=== PATIENT | female | born 2000 | race Two or more races ===

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

== ENCOUNTER 2021-02-28 14:33 | Emergency (ER) | payer MEDICAID ==
[~2021-02-28] VITALS: Ht 162.6 cm; Wt 59.0 kg
[2021-02-28 14:56] VITALS: BP 113/51
[2021-02-28] MEDS ORDERED: FLUORESCEIN SODIUM 1MG/STRIP RIGHTEYE ONE (15:30)
[2021-02-28] MEDS ORDERED: TETRACAINE 0.5% OPHTH DROPS 4ML RIGHTEYE ONE (16:00)
== END 2021-02-28 17:29 | disposition home or self-care (01) ==
LOC: ER 14:33
DX: T15.91XA Foreign body on external eye, part unspecified, right eye, initial encounter (principal)
CPT/HCPCS: 99283

== ENCOUNTER 2021-03-10 01:21 | Emergency (ER) | payer MEDICAID ==
[~2021-03-10] VITALS: Ht 165.1 cm; Wt 57.0 kg
[2021-03-10] MEDS ORDERED: MORPHINE SULFATE 4 MG/ML CPJ (NOT FOR IM USE) IV STA (01:49)
[2021-03-10] MEDS ORDERED: ONDANSETRON HCL 4MG/2ML INJ IV STA (01:49)
[2021-03-10] MEDS ORDERED: SODIUM CHLORIDE 0.9% 1,000 ML IV ONE (02:00)
[2021-03-10 02:28] LABS: BASOPHILS % 0.3 % (0.0-2.0); EOSINOPHILS % 1.5 % (0.0-5.0); HEMATOCRIT. 43.5 % (36.0-48.0); HEMOGLOBIN. 14.6 g/dL (12.0-16.0); LYMPHOCYTES % 19.1 % (20.0-50.0); MEAN CORPUSCULAR HEMOGLOBIN 29.9 pg (28.0-32.0); MEAN CORPUSCULAR VOLUME 89.3 fL (81.0-99.0); MEAN PLATELET VOLUME 9.3 fl (7.4-10.4); MONOCYTES % 5.5 % (2.0-8.0); NEUTROPHILS % 73.6 % (40.0-76.0); PLATELET 264 x1000/uL (130-400); RED BLOOD CELL COUNT 4.88 mill/uL (4.2-5.4); RED CELL DISTRIBUTION WIDTH 12.9 % (11.6-14.6)
[2021-03-10 02:32] LABS: CHLORIDE 105 mEq/L (98-107)
[2021-03-10 02:36] LABS: HCG SCREEN NEGATIVE
[2021-03-10 03:47] LABS: BASOPHILS % 0.5 % (0.0-2.0); EOSINOPHILS % 0.9 % (0.0-5.0); HEMATOCRIT. 41.5 % (36.0-48.0); HEMOGLOBIN. 13.7 g/dL (12.0-16.0); LYMPHOCYTES % 16.8 % (20.0-50.0); MEAN CORPUSCULAR HEMOGLOBIN 29.8 pg (28.0-32.0); MEAN CORPUSCULAR VOLUME 90.1 fL (81.0-99.0); MEAN PLATELET VOLUME 9.2 fl (7.4-10.4); MONOCYTES % 5.3 % (2.0-8.0); NEUTROPHILS % 76.5 % (40.0-76.0); PLATELET 259 x1000/uL (130-400)
[2021-03-10] MEDS ORDERED: HYDROCODONE/ACETAMINOPHEN 5/325MG TABLET PO ONE (05:00)
[2021-03-10] MEDS ORDERED: METHOCARBAMOL 500MG TABLET PO ONE (05:00)
[2021-03-10] MEDS ORDERED: IBUP-2028 MT (05:54)
[2021-03-10] MEDS ORDERED: METH-653 MT (05:54)
[2021-03-10 06:12] VITALS: BP 118/72
[2021-03-10] MEDS ORDERED: IOHEXOL-300 100 ML BOTTLE ONE (06:41)
== END 2021-03-10 06:17 | disposition home or self-care (01) ==
LOC: ER 02:03
DX: S29.9XXA Unspecified injury of thorax, initial encounter (principal); V49.50XA Passenger injured in collision with unspecified motor vehicles in traffic accident, initial encounter; Y93.89 Activity, other specified; Y92.89 Other specified places as the place of occurrence of the external cause; Y99.8 Other external cause status
CPT/HCPCS: 36415; 70450; 71045; 71260; 72125; 73552; 73562; 74177; 80048; 81025; 84703; 85025; 86850; 86900; 86901; 93005; 96361; 96374; 96375; 99291; J2270; J2405; J7030; Q9967

== ENCOUNTER 2021-10-10 19:48 | Emergency (ER) | payer MEDICAID ==
[~2021-10-10] VITALS: Ht 167.6 cm; Wt 66.0 kg
[~2021-10-10 19:48] MED LIST: IBUP-2028 MT; METH-653 MT
[2021-10-10 19:53] VITALS: BP 119/73
[2021-10-10] MEDS ORDERED: IBUPROFEN 400MG TABLET PO ONE (20:45)
[2021-10-10] MEDS ORDERED: ACETAMINOPHEN 325MG TABLET PO ONE (20:45)
== END 2021-10-10 21:09 | disposition left against medical advice (07) ==
LOC: ER 19:48
DX: R07.89 Other chest pain (principal)
CPT/HCPCS: 93005; 99283

== ENCOUNTER 2024-09-28 15:25 | Emergency (ER) | payer MEDICAID ==
[~2024-09-28] VITALS: Ht 162.6 cm; Wt 66.0 kg
[2024-09-28 15:28] VITALS: O2SAT 98
[2024-09-28 15:40] VITALS: BP 107/56; PULSE 79; RESP 14; TEMP 36.6; O2SAT 99
[2024-09-28] MEDS ORDERED: IBUP-2029 MT (19:13)
[2024-09-28] MEDS ORDERED: TOPUD PO (19:13)
== END 2024-09-28 19:42 | disposition home or self-care (01) ==
LOC: ER 15:25
DX: M25.461 Effusion, right knee (principal); W06.XXXA Fall from bed, initial encounter; Y93.89 Activity, other specified; Y92.89 Other specified places as the place of occurrence of the external cause; Y99.8 Other external cause status
CPT/HCPCS: 73560; 99283